=== PATIENT | female | born 1990 | race Caucasian/White ===

== ENCOUNTER 2019-01-28 17:55 | Inpatient (IN) ==
--- NOTE | 2019-01-29 01:53 | P.HPIM ---
History of Present Illness Service: [facility] Primary Care Physician: No Primary Care Physician Chief Complaint: abdominal pain History of Present Illness: 29 y/o female with a history of ulcerative colitis presented to the ER with complaints of fever, body aches, nausea, vomiting and diarrhea for the past 3 days. She states she has not been able to eat or drink anything. Max temp at home was 101.7. She states Tylenol at home was not helping. Upon examination she states she is feeling much better since given fluids, no current pain or nausea. Denies any chest pain, sob, dizziness or headache. Review of Systems Review of Systems: all other systems reviewed are negative [facility] Medical History Medical History Ulcerative colitis (Acute) Surgical History Surgical History History of colostomy reversal (Acute) Social History Social History Substance History: Active Abuse Second Hand Smoke Exposure: Yes Smoking Status: Current every day smoker Tobacco Type: Cigarettes How Often Do You Have a Drink Containing Alcohol: Never Recent Travel in [facility] within the Last 8 Weeks: No Recent Out of Country Travel within the Last 8 Weeks: No Substance Abuse Detail Marijuana: Substance Use Status: Active Route Used Substance Abuse: Inhalation Immunization History Tetanus Immunization: <5 Years Tetanus Immunization Year if Known: 2018 Hx Influenza Vaccine This Season: Yes Medications and Allergies Allergies Allergy/AdvReac Type Severity Reaction Status Date / Time morphine AdvReac Vomiting Verified 01/28/19 18:55 Home Medications Medication Instructions Recorded Confirmed Type Unable to Obtain Home Meds 01/28/19 01/28/19 History Active Medications: Active Medications Acetaminophen (Tylenol) 650 mg PO Q4H PRN PRN Reason: Temp > 100.4 Piperacillin/Tazobactam/Dextrose (Zosyn 3.375 Gm Premix) 3.375 gm in 50 mls @ 100 mls/hr IV.SIG Q6H [facility] Sodium Chloride (Ns Inj) 1,000 mls @ 100 mls/hr IV.CONT .Q10H [facility] Ketorolac Tromethamine (Toradol Inj) 30 mg IV.PUSH Q6H PRN PRN Reason: pain 1 to 10 Ondansetron HCl (Zofran Inj) 4 mg IV.PUSH Q6H PRN PRN Reason: NAUSEA OR VOMITING Sodium Chloride (Ns Flush) 2 ml IV.FLUSH BID [facility] Sodium Chloride (Ns Flush) 2 ml IV.FLUSH PRN PRN PRN Reason: FLUSH AFTER USING IV ACCESS Tamsulosin HCl (Flomax) 0.4 mg PO DAILY [facility] Physical Exam Vital signs: Vital Signs 01/29/19 00:37 Temperature 99.0 F Pulse Rate 86 Respiratory Rate 18 Blood Pressure 107/62 Pulse Oximetry 97 Intake & Output 01/28/19 01/28/19 01/29/19 06:59 18:59 06:59 Weight 93.3 kg Other: Weight On Admission 185 kg Narrative: GENERAL: well nourished patient who appears comfortable SKIN: Warm and dry. EYES: No scleral icterus. No injection or drainage. NECK: Supple, trachea midline. No JVD or lymphadenopathy. CARDIOVASCULAR: Regular rate and rhythm without murmurs, gallops, or rubs. RESPIRATORY: Breath sounds equal bilaterally. No accessory muscle use. GASTROINTESTINAL: Abdomen soft, non-tender, nondistended. MUSCULOSKELETAL: No cyanosis, or edema. BACK: Left CVA tenderness Results Labs CBC & Chem 7: 01/29/19 07:17 01/29/19 07:17 Caprini VTE Risk Assessment Caprini VTE Risk Assessment: No/Low Risk (score <= 1) Caprini Risk Assessment Model: Point Value = 1 Point Value = 2 Point Value = 3 Point Value = 5 Age 41-60 Minor surgery BMI > 25 kg/m2 Swollen legs Varicose veins or History of unexplained or recurrent spontaneous Oral contraceptives or hormone replacement Sepsis (< 1 month) Serious lung disease, including pneumonia (< 1 month) Abnormal pulmonary function Acute myocardial infarction Congestive heart failure (< 1 month) History of inflammatory bowel disease Medical patient at bed rest Age 61-74 Arthroscopic surgery Major open surgery (> 45 min) Laparoscopic surgery (> 45 min) Malignancy Confined to bed (> 72 hours) Immobilizing plaster cast Central venous access Age >= 75 History of VTE Family history of VTE Factor V Leiden Prothrombin 21025H Lupus anticoagulant Anticardiolipin antibodies Elevated serum homocysteine Heparin-induced thrombocytopenia Other congenital or acquired thrombophilia Stroke (< 1 month) Elective arthroplasty Hip, pelvis, or leg fracture Acute spinal cord injury (< 1 month) Prophylaxis Regimen: Total Risk Factor Score Risk Level Prophylaxis Regimen 0-1 Low Early ambulation 2 Moderate Order ONE of the following: *Sequential Compression Device (SCD) *Heparin 5000 units SQ BID 3-4 Higher Order ONE of the following medications: *Heparin 5000 units SQ TID *Enoxaparin/Lovenox 40 mg SQ daily (WT < 150 kg, CrCl > 30 mL/min) *Enoxaparin/Lovenox 30 mg SQ daily (WT < 150 kg, CrCl > 10-29 mL/min) *Enoxaparin/Lovenox 30 mg SQ BID (WT < 150 kg, CrCl > 30 mL/min) AND/OR *Sequential Compression Device (SCD) 5 or more Highest Order ONE of the following medications: *Heparin 5000 units SQ TID (Preferred with Epidurals) *Enoxaparin/Lovenox 40 mg SQ daily (WT < 150 kg, CrCl > 30 mL/min) *Enoxaparin/Lovenox 30 mg SQ daily (WT < 150 kg, CrCl > 10-29 mL/min) *Enoxaparin/Lovenox 30 mg SQ BID (WT < 150 kg, CrCl > 30 mL/min) AND *Sequential Compression Device (SCD) Assessment and Plan Plan 29 y/o female with a history of ulcerative colitis presented to the ER with complaints of fever, body aches, nausea, vomiting and diarrhea for the past 3 days. Obstructive Uropathy with leukocytosis Abd CT reviewed and shows moderate obstructive uropathy on the left leading to a proximal mid ureteral calculus measuring 7 x 2 mm seen at L4-5 level. Abnormal UA, culture pending -Consult to urology for evaluation -Toradol IV for pain -Flomax daily -Zofran as needed -Zosyn IV -Blood cultures pending Acute kidney injury related to dehydration Creatine 1.6, baseline .5 -IVF -labs in am Diarrhea, patient states her UC acts up when she doesn't eat -Stool studies ordered -Cdiff negative DVT prophylaxis: SCDs Code Status: Full Discussed Condition With: Patient and RN H&P: Quality VTE Deep Vein Thrombosis/Pulmonary Embolism Present on Admission: No
[2019-01-29] MEDS: Ketorolac Inj 30 MG/ML (IVP) Vial IV.PUSH PRN (02:10)
[2019-01-29] MEDS: Sod Chloride 0.9% Inj 1,000 ML IV.CONT SCH ×4 (02:10→22:55)
[2019-01-29] MEDS: Piperacil/Tazo 3.375 GM Premix 3.375 GM/50 ML PIGGYBACK IV.SIG SCH ×3 (06:15→17:51)
[2019-01-29] MEDS: Acetaminophen 325 MG Tablet PO PRN ×2 (07:31→22:42)
[2019-01-29 07:40] LABS: Baso % (Auto) 0.2 % (0.0-2.0); Eos % (Auto) 0.1 % (0.0-4.0); Hemoglobin 12.9 gm/dL (11.6-15.3); Lymph # (Auto) 0.3 th/mm3 (1.0-4.8); Mean Corpuscular HGB Conc 34.9 % (32.0-36.0); Mean Corpuscular Hemoglobin 30.3 pg (27.0-34.0); Mean Platelet Volume 10.6 fL (7.0-11.0); Mono # (Auto) 0.4 th/mm3 (0.0-0.9); Mono % (Auto) 2.8 % (0.0-8.0); Neut # (Auto) 12.7 th/mm3 (1.8-7.7); Neut % (Auto) 94.9 % (16.0-70.0); Platelet Count 160 th/mm3 (150-450); Red Blood Count 4.25 mil/mm3 (4.00-5.30); Red Cell Distribution Width 12.8 % (11.6-17.2); White Blood Count 13.4 th/mm3 (4.0-11.0)
[2019-01-29 08:07] LABS: Albumin 3.2 g/dL (3.4-5.0); Anion Gap 11 meq/L (5-15); Blood Urea Nitrogen 14 mg/dL (7-18); Calcium 8.8 mg/dL (8.5-10.1); Carbon Dioxide 19.4 meq/L (21.0-32.0); Chloride 104 meq/L (98-107); Glomerular Filtration Rate 65 mL/min (>89); Glucose,Random 181 mg/dL (74-106); Potassium 3.4 meq/L (3.5-5.1); Sodium 134 meq/L (136-145)
[2019-01-29 08:09] LABS: Alanine Aminotransferase 291 U/L (10-53); Aspartate Aminotransferase 134 U/L (15-37)
[2019-01-29 08:12] LABS: Alkaline Phosphatase 236 U/L (45-117)
[2019-01-29] MEDS ORDERED: Potassium Chloride 10 MEQ ER Capsule PO ONE (08:19)
--- NOTE | 2019-01-29 10:34 | MB ---
cc: Ravindra Beasley DO DATE: 01/29/2019 HISTORY OF PRESENT ILLNESS: This is a pleasant 29-year-old female who presented to the emergency room om [place] with complaints of fever, nausea, vomiting, and diarrhea. She also had left-sided flank pain and a temperature at home of 101.7. CT scan in the emergency room there demonstrated a 7 x 2 mm left mid ureteral stone causing obstruction with hydronephrosis. She denies any prior history of stones. PAST MEDICAL HISTORY: Includes ulcerative colitis. PAST SURGICAL HISTORY: Noted for colostomy reversal. FAMILY HISTORY: Notable for multiple sclerosis. SOCIAL HISTORY: Denies smoking or drinking. Currently uses marijuana. ALLERGIES: SHE IS ALLERGIC TO MORPHINE. MEDICATIONS: Refer to the chart. REVIEW OF SYSTEMS: Left-sided flank pain, nausea, vomiting. Denies chest pain, shortness of breath, headache, gait disturbances, bleeding disorders. Remaining review of systems reviewed and are negative. PHYSICAL EXAMINATION: VITAL SIGNS: Temperature is 100.2, heart rate 94, respiratory rate 16, 105/66. GENERAL: Well-developed, well-nourished, 29-year-old female in no acute distress. HEENT: Normocephalic, atraumatic. Pupils equal, round, reactive to light. Extraocular movements intact. NECK: Supple. HEART: Regular rate and rhythm. LUNGS: Clear. ABDOMEN: Soft, nontender, nondistended. There is left CVA tenderness noted. GENITOURINARY: Normal female external genitalia. EXTREMITIES: Show no cyanosis, clubbing, or edema. DIAGNOSTIC DATA: White count 13.4, hemoglobin 12.9, hematocrit 37.0, platelet count of 160. Sodium 134, potassium 3.4, chloride 104, CO2 of 19.4, BUN of 14, creatinine 1.02, glucose of 181. Again, CT scan demonstrated a 7 x 2 mm left mid ureteral stone causing obstruction. ASSESSMENT AND PLAN: A 29-year-old female with a 7 x 2 mm left mid ureteral stone causing obstruction. We will plan for cystoscopy, left double-J stent. Continue n.p.o. Risks and benefits were discussed preoperatively with the patient, she is willing to proceed. DO RAYMON Maki/amena , 09:28 AM , 09:34 AM
--- NOTE | 2019-01-29 10:59 | P.PNIM ---
Subjective Interval history: Follow-up visit obstructive uropathy. Patient seen and examined today. States that she has no pain or no spasms. States that she continues to be nauseous. Last vomited yesterday. Otherwise, denies pain and discomfort. Denies SOB/ dyspnea. Denies chest pain, palpitations, headaches, dizziness. Denies fevers, chills. Patient reports that she does not have dysuria, she has no pressure in her bladder or suprapubic area, she has not void or have a urge to void Physical Exam Vital signs: Vital Signs 01/29/19 00:37 01/29/19 03:10 01/29/19 07:20 Temperature 99.0 F 102 F H Pulse Rate 86 100 H Respiratory Rate 18 16 16 Blood Pressure 107/62 113/67 Pulse Oximetry 97 97 01/29/19 09:03 Temperature 100.2 F H Pulse Rate 94 H Respiratory Rate 16 Blood Pressure 105/66 Pulse Oximetry 96 Intake & Output 01/28/19 01/29/19 01/29/19 18:59 06:59 18:59 Intake Total 50 / 50 Balance 50 / 50 Weight 93.3 kg Intake: IV 50 / 50 Zosyn 3.375 GM Premix 3.375 gm 50 / 50 In 50 ml @ 100 mls/hr IV.SIG Q6H [facility] Rx#:[id number] Other: Date of Last Bowel Movement 01/29/19 Weight On Admission 185 kg Narrative: GENERAL: This is a well-nourished, well-developed patient, in no apparent distress. SKIN: Warm and dry. HEENT: Normocephalic. Pupils equal round and reactive. Nose without bleeding. Airway patent. NECK: Trachea midline. CARDIOVASCULAR: Regular rate and rhythm without murmurs, gallops, or rubs. RESPIRATORY: Clear to auscultation. Breath sounds equal bilaterally. No wheezes , rales, or rhonchi. GASTROINTESTINAL: Abdomen soft, non-tender, nondistended. Bowel Sounds hypoactive. MUSCULOSKELETAL: Extremities without clubbing, cyanosis, or edema. Left flank tenderness. NEUROLOGICAL: Awake and alert. Oriented to time, place, person. No focal neuro deficit. Moves all extremities. Normal speech. Results Labs CBC & Chem 7: 01/29/19 07:17 01/29/19 07:17 Assessment and Plan Plan 29 y/o female with a history of ulcerative colitis presented to the ER with complaints of fever, body aches, nausea, vomiting and diarrhea for the past 3 days. Obstructive Uropathy with leukocytosis Abd CT reviewed and shows moderate obstructive uropathy on the left leading to a proximal mid ureteral calculus measuring 7 x 2 mm seen at L4-5 level. Abnormal UA, culture pending -Consult to urology for evaluation, appreciate recommendation. Plan for cystoscopy today with possible stent placement. -Toradol IV for pain -Flomax daily -Zofran as needed -Zosyn IV -Blood cultures pending -Keep patient n.p.o. for now Acute kidney injury related to dehydration Creatine 1.6, baseline .5 -IVF -Avoid nephrotoxins -CREMATORY ATTENDANT 1.02 Diarrhea, patient states her UC acts up when she doesn't eat History of ulcerative colitis -Stool studies ordered -Cdiff negative -No diarrhea reported on exam today DVT prophylaxis SCDs Full code Discussed Condition With: Patient, nursing, Dr. Wilkins Discharge Planning: Plan to DC home when clinically improved. Pending surgical procedure today. Progress Note: Quality VTE Deep Vein Thrombosis/Pulmonary Embolism Present on Admission: No
[2019-01-29] MEDS ORDERED: Chlorhexidine Gluconate 2% 1 Pack (2 Cloths) TOPICAL ONE (12:30)
[2019-01-29] MEDS ORDERED: Metoprolol Tartrate 25 MG Tablet PO ONE (12:30)
[2019-01-29] MEDS ORDERED: Sodium Chlor 0.9% Inj 500 ML IV.CONT ONE (12:30)
[2019-01-29] MEDS ORDERED: Lidocaine PF 1% Inj 5 ML Syringe OTHER ONE (12:34)
[2019-01-29] MEDS ORDERED: Succinylcholine Inj 100 MG/5 ML Syringe IV.PUSH ONE (12:34)
[2019-01-29] MEDS ORDERED: HYDROmorphone PF Inj 1 MG/ML Ampul ONE (12:53)
--- NOTE | 2019-01-29 13:15 | P.OP ---
- Preoperative Diagnosis (1) Left ureteral calculus (2) Hydronephrosis, left (3) Sepsis - Postoperative Diagnosis (1) Hydronephrosis, left (2) Left ureteral calculus (3) Sepsis Date of procedure: 01/29/19 Procedure: Cystoscopy, left retrograde study, left double-J stent insertion Anesthesia: other (General LMA) Surgeon: Ravindra Beasley DO Estimated blood loss (mL): 0 Pathology: none sent Operation and Findings: 29-year-old female who presented to the [facility] emergency room with left-sided flank pain, nausea vomiting and fever. CT scan revealed the presence of a 7 x 2 mm left mid ureteral stone causing hydronephrosis and proximal hydroureter. This morning she had a fever of 101.2 and was developing sepsis. Decision was made to take the patient to the operating room to undergo cystoscopy left retrograde study and left double-J stent insertion. Risk and benefits were discussed preoperatively she is willing to proceed. Patient was brought to the operating room and identified by myself is Sari Nuñez. She was placed in dorsolithotomy position, prepped and draped you sterile fashion, received preprocedure antibiotics and general LMA anesthesia was administered. A 22 [place] scope was inserted into the bladder mack cystoscopy did not reveal any abnormalities. A 5 [place] opening catheter was inserted into the left ureter orifice and retrograde pyelogram was performed. Radiographic findings: Retrograde pyelogram of the left ureter demonstrated a stone in the mid ureter with hydroureter and hydronephrosis. A 0.35 sensor wire was then passed through the open-ended catheter up into the kidney. A 6 [place] 22 cm left double-J stent was placed in good position. A 16 [place] Upton catheter was inserted into the bladder to completion procedure. The patient was awoken and extubated transferred recovery in stable condition. She tolerated the procedure well.
[2019-01-29] MEDS ORDERED: fentaNYL Citrate Inj 100 MCG/2 ML Ampul ONE (13:24)
[2019-01-29] MEDS ORDERED: Iohexol Inj 350 MG/ML 100 ML Bottle (for RAD Diag) IVCONTRAST ONE (13:25)
[2019-01-30] MEDS: Piperacil/Tazo 3.375 GM Premix 3.375 GM/50 ML PIGGYBACK IV.SIG SCH ×4 (01:09→18:11)
--- NOTE | 2019-01-30 08:57 | P.PNIM ---
Subjective Interval history: Follow-up visit obstructive uropathy, status post stent placement. Patient seen and examined today. Reports she is doing well. Upton catheter in place. Slight hematuria noted. States she was having fevers overnight with T-max 102. Denies pain and discomfort. Denies SOB/ dyspnea. Denies chest pain, palpitations, headaches, dizziness. Denies n/v/d. Denies hematuria, dysuria. Physical Exam Vital signs: Vital Signs 01/29/19 09:03 01/29/19 11:35 01/29/19 13:18 Temperature 100.2 F H 98.9 F 100.3 F H Pulse Rate 94 H 100 H 98 H Respiratory Rate 16 16 16 Blood Pressure 105/66 133/85 115/66 Pulse Oximetry 96 97 100 01/29/19 13:30 01/29/19 13:45 01/29/19 14:00 Temperature 99.8 F H Pulse Rate 90 86 86 Respiratory Rate 16 16 16 Blood Pressure 107/59 L 113/61 108/58 L Pulse Oximetry 96 95 95 01/29/19 16:00 01/29/19 20:00 01/30/19 00:00 Temperature 98.9 F 102.3 F H 99.5 F Pulse Rate 78 86 82 Respiratory Rate 16 16 12 Blood Pressure 119/64 110/65 111/64 Pulse Oximetry 97 98 96 01/30/19 04:00 Temperature 99.2 F Pulse Rate 78 Respiratory Rate 12 Blood Pressure 114/68 Pulse Oximetry 98 Intake & Output 01/29/19 01/30/19 01/30/19 18:59 06:59 18:59 Intake Total 1900 / 1900 2620 / 2620 Output Total 600 / 600 660 / 660 Balance 1300 / 1300 1960 / 1960 Intake: IV 1100 / 1100 1100 / 1100 NS Inj 1,000 ML @ 100 mls/hr IV 1000 / 1000 1000 / 1000 .CONT .Q10H [facility] Rx#:[id number] Zosyn 3.375 GM Premix 3.375 gm 100 / 100 100 / 100 In 50 ml @ 100 mls/hr IV.SIG Q6H [facility] Rx#:[id number] Oral 320 / 320 Anesthesia Amount 800 / 800 Other 1200 / 1200 Output: Urine 660 / 660 Emesis 600 / 600 Other: Other Intake Source Saline Solution Date of Last Bowel Movement 01/29/19 01/29/19 # Emeses 3 Narrative: GENERAL: This is a pleasant obese female, well-developed patient, in no apparent distress. SKIN: Warm and dry. HEENT: Normocephalic. Pupils equal round and reactive. Nose without bleeding. Airway patent. NECK: Trachea midline. CARDIOVASCULAR: Regular rate and rhythm without murmurs, gallops, or rubs. RESPIRATORY: Clear to auscultation. Breath sounds equal bilaterally. No wheezes , rales, or rhonchi. GASTROINTESTINAL: Abdomen soft, non-tender, nondistended. Bowel Sounds hypoactive. : Upton catheter in place hematuria noted MUSCULOSKELETAL: Extremities without clubbing, cyanosis, or edema. NEUROLOGICAL: Awake and alert. Oriented to time, place, person. No focal neuro deficit. Moves all extremities. Normal speech. CVA tenderness. Urinary Catheter Management Indwelling Urethral Catheter: Cath placed during this visit: yes Reason for continuing: Other continuation reason Insertion date: 01/29/19 Results Labs CBC & Chem 7: 01/31/19 08:10 01/31/19 08:10 Assessment and Plan Plan 29 y/o female with a history of ulcerative colitis presented to the ER with complaints of fever, body aches, nausea, vomiting and diarrhea for the past 3 days. Obstructive Uropathy with leukocytosis Abd CT reviewed and shows moderate obstructive uropathy on the left leading to a proximal mid ureteral calculus measuring 7 x 2 mm seen at L4-5 level. Abnormal UA, culture pending -Consult to urology for evaluation, appreciate recommendation. Cystoscopy with stent placement done 01/29/19 -Toradol IV for pain, Flomax daily -Zofran as needed -Zosyn IV, will add Vanco IV x1 dose as patient is febrile overnight. Patient is febrile overnight. UA pending cultures. -Blood cultures NGTD -Spoke with Dr. Beasley, plan to discontinue Upton catheter by tomorrow, possible discharge in 1-2 days, continue with pain management. They have to perform lithotripsy and outpatient. Acute kidney injury related to dehydration Creatine 1.6, baseline .5 -IVF to continue for now. -Avoid nephrotoxins -Monitor renal indicis Diarrhea, patient states her UC acts up when she doesn't eat History of ulcerative colitis -Stool studies WBC stool with gram-positive cocci -Cdiff negative DVT prophylaxis SCDs Full code Discussed Condition With: Patient, nursing, Dr. Wilkins Discharge Planning: Plan to DC home when clinically improved. Pending surgical procedure today. Progress Note: Quality VTE Deep Vein Thrombosis/Pulmonary Embolism Present on Admission: No
[2019-01-30] MEDS ORDERED: Vancomycin Inj 1,250 MG in Sodium Chlor 0.9% Inj 250 ML IV.SIG ONE (09:30)
--- NOTE | 2019-01-30 09:54 | P.PNURO ---
Subjective Patient symptoms today: Pt seen and examined. Feeling better Objective Vital Signs: Vital Signs 01/29/19 11:35 01/29/19 13:18 01/29/19 13:30 Temperature 98.9 F 100.3 F H Pulse Rate 100 H 98 H 90 Respiratory Rate 16 16 16 Blood Pressure 133/85 115/66 107/59 L Pulse Oximetry 97 100 96 01/29/19 13:45 01/29/19 14:00 01/29/19 16:00 Temperature 99.8 F H 98.9 F Pulse Rate 86 86 78 Respiratory Rate 16 16 16 Blood Pressure 113/61 108/58 L 119/64 Pulse Oximetry 95 95 97 01/29/19 20:00 01/30/19 00:00 01/30/19 04:00 Temperature 102.3 F H 99.5 F 99.2 F Pulse Rate 86 82 78 Respiratory Rate 16 12 12 Blood Pressure 110/65 111/64 114/68 Pulse Oximetry 98 96 98 01/30/19 08:09 Temperature 99.3 F Pulse Rate 79 Respiratory Rate 16 Blood Pressure 128/84 Pulse Oximetry 98 Intake & Output 01/29/19 01/30/19 01/30/19 18:59 06:59 18:59 Intake Total 1900 / 1900 2620 / 2620 Output Total 600 / 600 660 / 660 Balance 1300 / 1300 1960 / 1960 Intake: IV 1100 / 1100 1100 / 1100 NS Inj 1,000 ML @ 100 mls/hr IV 1000 / 1000 1000 / 1000 .CONT .Q10H [facility] Rx#:[id number] Zosyn 3.375 GM Premix 3.375 gm 100 / 100 100 / 100 In 50 ml @ 100 mls/hr IV.SIG Q6H [facility] Rx#:[id number] Oral 320 / 320 Anesthesia Amount 800 / 800 Other 1200 / 1200 Output: Urine 660 / 660 Emesis 600 / 600 Other: Other Intake Source Saline Solution Date of Last Bowel Movement 01/29/19 01/29/19 # Emeses 3 Result Diagrams: 01/29/19 07:17 01/29/19 07:17 Medications and IVs: Active Medications Generic Name Dose Route Start Last Admin Trade Name Freq PRN Reason Stop Dose Admin Acetaminophen 650 mg 01/29/19 01:39 01/29/19 22:42 Tylenol PO 650 mg Q4H PRN Administration Temp > 100.4 Piperacillin/Tazobactam/Dextrose 3.375 gm in 50 mls @ 100 mls/hr 01/29/19 06: 00 01/30/19 05:59 Zosyn 3.375 Gm Premix IV.SIG Infused Q6H [facility] Infusion Sodium Chloride 1,000 mls @ 100 mls/hr 01/29/19 01:45 01/29/19 22:55 Ns Inj IV.CONT 100 mls/hr .Q10H [facility] Administration Lactated Ringer's 1,000 mls @ 30 mls/hr 01/29/19 12:30 01/29/19 14:37 Lr 1000 Ml Inj IV.CONT 01/30/19 12:29 Not Given .Q24H ONE Vancomycin HCl 1,250 mg/ 262.5 mls @ 250 mls/hr 01/30/19 09:30 Sodium Chloride IV.SIG 01/30/19 10:32 ONCE ONE Ketorolac Tromethamine 30 mg 01/29/19 01:39 01/29/19 02:10 Toradol Inj IV.PUSH 30 mg Q6H PRN Administration pain 1 to 10 Miscellaneous Information 0 each 01/29/19 13:21 Misc Nursing Information OTHER 01/30/19 13:20 UNSCH PRN SEE LABEL COMMENTS Ondansetron HCl 4 mg 01/29/19 01:39 01/29/19 08:56 Zofran Inj IV.PUSH 4 mg Q6H PRN Administration NAUSEA OR VOMITING Promethazine HCl 25 mg 01/29/19 11:25 01/29/19 12:31 Phenergan Inj IM 25 mg Q6H PRN Administration NAUSEA OR VOMITING Sodium Chloride 2 ml 01/29/19 09:00 01/30/19 08:25 Ns Flush IV.FLUSH Not Given BID [facility] Sodium Chloride 2 ml 01/29/19 01:39 Ns Flush IV.FLUSH PRN PRN FLUSH AFTER USING IV ACCESS Tamsulosin HCl 0.4 mg 01/29/19 01:45 01/30/19 08:24 Flomax PO 0.4 mg DAILY [facility] Administration Objective Remarks: Abd;soft,nt,nd Upton with blood tinged urine Assessment and Plan - Plan 29 y.o female s/p cysto with left JJ stent insertion Continue IV abx; fever last PM Void trial prior to discharge F/U in office to schedule left ESWL in the future D/C home with PO pain meds and abx.
[2019-01-30] MEDS: Sod Chloride 0.9% Inj 1,000 ML IV.CONT SCH ×2 (12:45→17:45)
[2019-01-30] MEDS: Acetaminophen 325 MG Tablet PO PRN ×2 (12:45→18:48)
[2019-01-30 22:56] VITALS: RESP 18
[2019-01-31] MEDS: Ketorolac Inj 30 MG/ML (IVP) Vial IV.PUSH PRN ×2 (00:46→09:15)
[2019-01-31] MEDS: Piperacil/Tazo 3.375 GM Premix 3.375 GM/50 ML PIGGYBACK IV.SIG SCH ×2 (00:47→05:58)
[2019-01-31] MEDS: Acetaminophen 325 MG Tablet PO PRN (00:52)
[2019-01-31] MEDS: Sod Chloride 0.9% Inj 1,000 ML IV.CONT SCH ×2 (00:53→04:01)
[2019-01-31 08:37] LABS: Baso % (Auto) 0.3 % (0.0-2.0); Eos # (Auto) 0.3 th/mm3 (0.0-0.4); Eos % (Auto) 2.3 % (0.0-4.0); Hematocrit 37.9 % (35.0-46.0); Lymph # (Auto) 1.8 th/mm3 (1.0-4.8); Lymph % (Auto) 14.4 % (9.0-44.0); Mean Corpuscular HGB Conc 34.4 % (32.0-36.0); Mean Corpuscular Hemoglobin 30.5 pg (27.0-34.0); Mean Corpuscular Volume 88.6 fL (80.0-100.0); Mean Platelet Volume 10.3 fL (7.0-11.0); Mono # (Auto) 0.9 th/mm3 (0.0-0.9); Mono % (Auto) 7.2 % (0.0-8.0); Neut # (Auto) 9.4 th/mm3 (1.8-7.7); Neut % (Auto) 75.8 % (16.0-70.0); Platelet Count 175 th/mm3 (150-450); Red Blood Count 4.28 mil/mm3 (4.00-5.30); Red Cell Distribution Width 13.4 % (11.6-17.2); White Blood Count 12.4 th/mm3 (4.0-11.0)
[2019-01-31 08:46] LABS: Anion Gap 10 meq/L (5-15); Blood Urea Nitrogen 9 mg/dL (7-18); Calcium 8.5 mg/dL (8.5-10.1); Carbon Dioxide 22.5 meq/L (21.0-32.0); Chloride 108 meq/L (98-107); Glomerular Filtration Rate Greater Than 89 mL/min (>89); Glucose,Random 82 mg/dL (74-106); Potassium 3.1 meq/L (3.5-5.1); Sodium 140 meq/L (136-145)
[2019-01-31] MEDS: levoFLOXacin 500 MG Tablet PO SCH (11:19)
--- NOTE | 2019-01-31 15:14 | P.PNIM ---
Subjective Interval history: Patient reports that she had a low-grade fever early this morning. She reports some mild right flank pain. No nausea or vomiting. Would like to have the Upton out today. Denies any diarrhea. No complaints of chest pain or shortness of breath. Physical Exam Vital signs: Vital Signs 01/30/19 16:09 01/30/19 16:30 01/30/19 20:00 Temperature 98.8 F 100.0 F H Pulse Rate 68 95 H Respiratory Rate 17 14 18 Blood Pressure 120/78 127/59 L Pulse Oximetry 97 98 01/31/19 00:00 01/31/19 04:00 01/31/19 08:00 Temperature 100.5 F H 98.1 F 98.2 F Pulse Rate 91 H 71 82 Respiratory Rate 18 18 18 Blood Pressure 136/63 122/70 130/72 Pulse Oximetry 97 94 L 98 01/31/19 12:00 Temperature 99.0 F Pulse Rate 76 Respiratory Rate 18 Blood Pressure 124/89 Pulse Oximetry 97 Intake & Output 01/30/19 01/31/19 01/31/19 18:59 06:59 18:59 Intake Total 1562.5 / 1562.5 1960 / 1960 1000 / 1000 Output Total 1000 / 1000 Balance 1562.5 / 1562.5 960 / 960 1000 / 1000 Intake: IV 1562.5 / 1562.5 1100 / 1100 1000 / 1000 NS Inj 1,000 ML @ 100 mls/hr IV 1200 / 1200 1000 / 1000 1000 / 1000 .CONT .Q10H [facility] Rx#:[id number] Zosyn 3.375 GM Premix 3.375 gm 100 / 100 100 / 100 In 50 ml @ 100 mls/hr IV.SIG Q6H [facility] Rx#:[id number] Vancomycin Inj 1,250 MG In NS 262.5 / 262.5 Inj 250 ML @ 250 mls/hr IV.SIG ONCE ONE Rx#:[id number] Oral 860 / 860 Output: Urine 1000 / 1000 Other: Date of Last Bowel Movement 01/31/19 Narrative: GENERAL: This is a pleasant obese female, well-developed patient, in no apparent distress. CARDIOVASCULAR: Regular rate and rhythm without murmurs, gallops, or rubs. RESPIRATORY: Clear to auscultation. Breath sounds equal bilaterally. No wheezes , rales, or rhonchi. GASTROINTESTINAL: Abdomen soft, non-tender, nondistended. Positive bowel sounds : Upton catheter in place hematuria noted MUSCULOSKELETAL: Extremities without clubbing, cyanosis, or edema. NEUROLOGICAL: Awake and alert. Oriented to time, place, person. No focal neuro deficit. Moves all extremities. Normal speech. Mild CVA tenderness. Urinary Catheter Management Indwelling Urethral Catheter: Cath placed during this visit: yes, but has since been removed by the nurse Reason for continuing: Other continuation reason Insertion date: 01/29/19 Removal date: 01/31/19 Removal time: 11:25 Results Labs CBC & Chem 7: 01/31/19 08:10 01/31/19 08:10 Assessment and Plan Plan 29 y/o female with a history of ulcerative colitis presented to the ER with complaints of fever, body aches, nausea, vomiting and diarrhea for the past 3 days. Obstructive Uropathy with leukocytosis Abd CT reviewed and shows moderate obstructive uropathy on the left leading to a proximal mid ureteral calculus measuring 7 x 2 mm seen at L4-5 level. Final urine culture showed 50 200,000 mixed gram-positive daniella Status post operative day #2 cystoscopy with stent placement done 01/29/[address] Beasley -Toradol IV for pain, Flomax daily -Zofran as needed -We will transition IV Zosyn to p.o. Levaquin -Blood cultures NGTD -Discontinue Upton catheter today for trial of voiding. Encourage incentive telemetry use. Will need to follow-up as an outpatient for lithotripsy Postoperative feverencourage incentive spirometry use, transition IV Zosyn to p.o. Levaquin, encourage ambulation in the hallways today. Leukocytosis trending down. Acute kidney injury related to dehydration and obstruction Presenting creatine 1.6, now improved -IVF to continue for now. -Avoid nephrotoxins Hypokalemiareplete Diarrhea, -resolved ; patient with formed stools with food intake. History of ulcerative colitis -Stool studies WBC stool with gram-positive cocci -Cdiff negative DVT prophylaxis SCDs Discharge to home in the morning if patient remains afebrile for 24 hours Discharge Planning: Plan to DC home when clinically improved. Pending surgical procedure today. Progress Note: Quality VTE Deep Vein Thrombosis/Pulmonary Embolism Present on Admission: No
[2019-02-01] MEDS: levoFLOXacin 500 MG Tablet PO SCH (07:59)
[2019-02-01 10:54] LABS: Baso % (Auto) 0.3 % (0.0-2.0); Eos # (Auto) 0.6 th/mm3 (0.0-0.4); Eos % (Auto) 6.4 % (0.0-4.0); Hematocrit 36.6 % (35.0-46.0); Hemoglobin 12.6 gm/dL (11.6-15.3); Lymph # (Auto) 2.1 th/mm3 (1.0-4.8); Mean Corpuscular HGB Conc 34.5 % (32.0-36.0); Mean Corpuscular Hemoglobin 30.1 pg (27.0-34.0); Mean Corpuscular Volume 87.3 fL (80.0-100.0); Mean Platelet Volume 10.4 fL (7.0-11.0); Mono # (Auto) 0.7 th/mm3 (0.0-0.9); Neut # (Auto) 6.5 th/mm3 (1.8-7.7); Neut % (Auto) 65.3 % (16.0-70.0); Platelet Count 208 th/mm3 (150-450); Red Cell Distribution Width 13.4 % (11.6-17.2); White Blood Count 9.9 th/mm3 (4.0-11.0)
[2019-02-01 11:19] LABS: Anion Gap 9 meq/L (5-15); Blood Urea Nitrogen 9 mg/dL (7-18); Calcium 8.5 mg/dL (8.5-10.1); Carbon Dioxide 24.6 meq/L (21.0-32.0); Chloride 107 meq/L (98-107); Glomerular Filtration Rate Greater Than 89 mL/min (>89); Glucose,Random 79 mg/dL (74-106); Potassium 3.2 meq/L (3.5-5.1); Sodium 141 meq/L (136-145)
[2019-02-01 11:51] LABS: Eosinophils 8 % (0-4); Lymphocytes 14 % (9-44); Metamyelocytes 1 % (0-1); Monocytes 4 % (0-8); Platelet Estimate Normal (Normal); Platelet Morphology Normal (Normal)
--- NOTE | 2019-02-01 12:08 | P.DS ---
Date of admission: 01/29/19 02:17 Primary care physician: No Primary Care Physician Brief History from admission: This is a 29 y/o CF with PMHx of Ulcerative colitis who presented to the ER with complaints of fever, body aches, nausea, vomiting and diarrhea for the past 3 days. Max temp at home was 101.7, patient reported that Tylenol at home was not helping. Upon examination she stated that she was feeling much better since given fluids, no current pain or nausea. Denied chest pain, sob, dizziness or headache. CT ABD showed moderate obstructive uropathy on the left leading to a proximal mid ureteral calculus measuring 7 x 2 mm seen at L4-5 level. Patient also presented with Creatine 1.6, patient was admitted for IVF, ABX, and Urology consult for further evaluation. DS: Diagnosis - Discharge Diagnosis (1) FAYE (acute kidney injury) Status: Acute (2) Hydronephrosis, left Status: Acute (3) Left ureteral calculus Status: Acute DS: Medications - Discharge Medications Prescriptions: levofloxacin 500 mg PO DAILY 7 Days #7 tab tamsulosin 0.4 mg PO DAILY 14 Days #14 cap DS: Summary Hospital Course: 1. Obstructive Uropathy with Leukocytosis CT ABD showed moderrate obstructive uropathy on the left leading to a proximal mid ureteral calculus measuring 7 x 2 mm seen at L4-5 level. Final urine culture showed 50 200,000 mixed gram-positive daniella, patient underwent cystoscopy with stent placement on 01/29/[address] Beasley. Patient was managed with pain meds, Flomax, and IV Zosyn. This was changed to PO Levaquin on 01/31. WBC 13.4 on admission trended down to 9.1 on the day of discharge. Patient had a dang placed during hospitalization which was removed on 01/31 and patient was voiding freely without difficulty. Patient had last fever of 100.5 on 01/31 at 12AM, patient was afebrile for >36hrs at the time of discharge. Patient was discharged in stable condition and was Rx Levaquin PO x7 days and Flomax PO. Patient advised to F/U with Uro as an outpatient to discuss lithotripsy. Patient taking APAP PRN and declined Rx for pain meds on discharge. Per Uro Reccs on 01/30: 29 y.o female s/p cysto with left JJ stent insertion Continue IV abx; fever last PM Void trial prior to discharge F/U in office to schedule left ESWL in the future D/C home with PO pain meds and abx. 2. Acute kidney injury Related to dehydration and obstruction Presenting creatine 1.6, improved to 0.52 on the day of D/C and was managed with IVF's. 3. Hypokalemia K 3.2 on the day of discharge, given KCl 40meqPO x1 prior to D/C Will F/U with PCP in 1 wk with BMP to assess K level Likely due to presenting diarrhea on admission 4. History of ulcerative colitis Diarrhea resolved during admission Stool studies WBC stool with gram-positive cocci Cdiff negative - Time Spent with Patient Total time spent providing and/or coordinating discharge services: Greater than 30 minutes - Quality: AMI Clinical Trial Participant: No - Quality: VTE Deep Vein Thrombosis/Pulmonary Embolism Present on Admission: No Exam Vital signs: Vital Signs 01/31/19 16:00 01/31/19 20:20 01/31/19 22:50 Temperature 98.6 F 97.8 F 98.7 F Pulse Rate 86 84 85 Respiratory Rate 18 18 18 Blood Pressure 116/72 110/59 L 111/59 L Pulse Oximetry 97 96 95 02/01/19 04:25 02/01/19 08:00 Temperature 98.4 F 98.2 F Pulse Rate 85 71 Respiratory Rate 18 18 Blood Pressure 114/71 128/93 H Pulse Oximetry 97 97 Intake & Output 01/31/19 02/01/19 02/01/19 18:59 06:59 18:59 Intake Total 1000 / 1000 Balance 1000 / 1000 Intake: IV 1000 / 1000 NS Inj 1,000 ML @ 100 mls/hr IV 1000 / 1000 .CONT .Q10H [facility] Rx#:[id number] Other: Date of Last Bowel Movement 01/31/19 Narrative: GENERAL: Well-nourished female, in no acute distress, sitting comfortably in a chair SKIN: Warm and dry. HEAD: Normocephalic. EYES: No scleral icterus. No injection or drainage. NECK: Supple, trachea midline. No JVD or lymphadenopathy. CARDIOVASCULAR: Regular rate and rhythm without murmurs, gallops, or rubs. RESPIRATORY: Breath sounds equal bilaterally. No accessory muscle use. GASTROINTESTINAL: Abdomen soft, non-tender, nondistended. MUSCULOSKELETAL: No cyanosis, or edema. BACK: Nontender without obvious deformity. No CVA tenderness. Results Procedures completed during hospitalization: Date of procedure: 01/29/19 Procedure: Cystoscopy, left retrograde study, left double-J stent insertion Anesthesia: other (General LMA) Surgeon: Ravindra Beasley DO Labs on day of discharge: Labs from last 24 hours 02/01/19 02/01/19 09:59 09:59 WBC 9.9 RBC 4.20 Hgb 12.6 Hct 36.6 MCV 87.3 MCH 30.1 MCHC 34.5 RDW 13.4 Plt Count 208 MPV 10.4 Prelim Diff (Auto) Slide review pending Neut % (Auto) 65.3 Lymph % (Auto) 21.0 [place] % (Auto) 7.0 Eos % (Auto) 6.4 H Baso % (Auto) 0.3 Neut # (Auto) 6.5 Lymph # (Auto) 2.1 [place] # (Auto) 0.7 Eos # (Auto) 0.6 H Baso # (Auto) 0.0 WBC Differential Manual diff final Seg Neuts % (Manual) 68 Band Neuts % (Manual) 5 Lymphocytes % (Manual) 14 Monocytes % (Manual) 4 Eosinophils % (Manual) 8 H Metamyelocytes % (Man) 1 Abs Neuts (Manual) 7.3 Differential Comment . Platelet Estimate Normal Platelet Morphology Normal Sodium 141 Potassium 3.2 L Chloride 107 Carbon Dioxide 24.6 Anion Gap 9 BUN 9 Creatinine 0.52 Estimated GFR Greater than 89 Random Glucose 79 Calcium 8.5 Discharge Plan - Discharge Disposition Patient Disposition: Discharge Home - Discharge Condition Condition: Stable - Discharge Order Discharge Orders: Discharge Order (Routine); Ordered 02/01/19 Ordered By: Nette Nick - Physicians Team Primary Care Provider: Primary Ale Parisi Attending Provider: Nette Nick Other Providers: Ravindra Beasley DO - Rxs /Orders / Referrals /Forms Prescriptions: New levofloxacin 500 mg Tablet 500 mg PO DAILY 7 Days Qty: 7 RF: 0 tamsulosin 0.4 mg Capsule 0.4 mg PO DAILY 14 Days Qty: 14 RF: 0 No Action Unable to Obtain Home Meds Referrals: Primary Care Ale Pepe [Primary Care Provider] - See Instructions (Patient to follow up with Primary in 1 week. office closed for the weekend) Forms: Work Release/Restrictions - Discharge Instructions Patient Printed Instructions: Levofloxacin (By mouth), Tamsulosin (By mouth), Hydronephrosis (DC), Cystoscopy (DC)
[2019-02-01 17:49] VITALS: BP 157/96; PULSE 93; TEMP 99; O2SAT 99
== END 2019-02-01 12:52 | disposition home or self-care (01) | DRG 660 ==
LOC: NEDDLT 23:40 → NEPFCDU 23:50 → INTOOBSV 23:50 → N04 01-30 17:29
PROVIDERS: ADMIT Family Medicine; ATTEND Family Medicine
CPT/HCPCS: 74177; 74420; 80048; 80053; 80074; 81001; 82550; 83605; 83690; 83735; 84702; 85025; 87040; 87086; 87205; 87275; 87276; 87493; 87804; 90761; 90765; 90767; 90775; 90776; 94150; 96361; 96365; 96367; 96375; 96376; 99285; A4646; C1769; C2617; J0131; J0330; J0696; J1100; J1170; J1885; J2250; J2405; J2543; J2550; J2704; J3010; J3370; J7030; J7050; Q9950; Q9965; Q9967